=== PATIENT | female | born 1955 | race Caucasian/White ===

== ENCOUNTER 2017-12-12 12:03 | Day surgery (SDC) | payer BC ==
[2017-12-12] MEDS ORDERED: PROPOFOL 20 ML (13:58)
== END 2017-12-12 16:54 | disposition home or self-care (01) ==
LOC: GIL 12:03
DX: Z12.11 Encounter for screening for malignant neoplasm of colon (principal); I10 Essential (primary) hypertension
CPT/HCPCS: 45378